=== PATIENT | female | born 1985 | race Hispanic/Latino ===

== ENCOUNTER 2017-08-28 15:26 | Inpatient (IN) | payer MEDICAID ==
[2017-08-28 15:38] VITALS: BMI 29.2
--- NOTE | 2017-08-28 16:15 | C.PDOC ---
History Of Present Illness 32-YEAR-OLD FEMALE, PRESENTS TO THE EMERGENCY DEPARTMENT, PRESCREEND FOR HEROIN DETOX. LAST USE THIS MORNING. +PCP CIGARETTE LAST NIGHT. CURRENTLY ASYMPT EXAM NAD PSYCH CALM COOPERATIVE NO ACUTE INTOX REMAINDER NEG Time Seen by Provider: 08/28/17 15:42 Chief Complaint (Nursing): Substance Abuse History Per: Patient History/Exam Limitations: no limitations Past Medical History Reviewed: Historical Data, Nursing Documentation, Vital Signs Vital Signs: Last Vital Signs Temp 97.7 F 08/30/17 05:52 Pulse 87 08/30/17 05:52 Resp 18 08/30/17 05:52 BP 104/64 08/30/17 05:52 Pulse Ox 98 08/30/17 05:52 - Medical History PMH: Asthma Family History: States: No Known Family Hx - Social History Hx Alcohol Use: Yes Hx Substance Use: Yes - Immunization History Hx Tetanus Toxoid Vaccination: Yes ("less than 7 yrs ago") Hx Influenza Vaccination: No Hx Pneumococcal Vaccination: No Review Of Systems Constitutional: Negative for: Fever Cardiovascular: Negative for: Chest Pain Respiratory: Negative for: Shortness of Breath Psych: Negative for: Suicidal ideation Physical Exam - Physical Exam Appears: Non-toxic, No Acute Distress, Other (CALM COOPERATIVE NO ACUTE INTOX) Skin: Warm, Dry, No Rash Head: Atraumatic Eye(s): bilateral: Normal Inspection Nose: Normal Lips: Normal Appearing Neck: Normal ROM Cardiovascular: Rhythm Regular, No Murmur Respiratory: Normal Breath Sounds, No Accessory Muscle Use Extremity: Normal ROM Neurological/Psych: Oriented x3 ED Course And Treatment - Laboratory Results Result Diagrams: 08/28/17 16:27 08/28/17 16:27 O2 Sat by Pulse Oximetry: 96 Progress - Data Reviewed Data Reviewed: Lab, Old records Disposition Counseled Patient/Family Regarding: Studies Performed, Diagnosis - Disposition Disposition: HOSPITALIZED Disposition Time: 16:55 Condition: STABLE - POA Present On Arrival: None - Clinical Impression Clinical Impression: Drug dependence - Scribe Statement The provider has reviewed the documentation as recorded by the Scribe (Jarrell Brink) All medical record entries made by the Scribe were at my direction and personally dictated by me. I have reviewed the chart and agree that the record accurately reflects my personal performance of the history, physical exam, medical decision making, and the department course for this patient. I have also personally directed, reviewed, and agree with the discharge instructions and disposition. Decision To Admit - Pt Status Changed To: Hospital Disposition Of: Inpatient - Admit Certification Admit to Inpatient:: After my assessment, the patient will require hospitalization for at least two midnights. This is because of the severity of symptoms shown, intensity of services needed, and/or the medical risk in this patient being treated as an outpatient. - InPatient: Physician Admission Certification: I certify that this patient requires 2 or more midnights of care for the following reason:: SEE NOTE - . Bed Request Type: Detox Admitting Physician: Yasmani Lee Patient Diagnosis: Drug dependence
[2017-08-28 16:34] LABS: BASO % 0.5 % (0.0-2.0); EOS # 0.3 K/uL (0.0-0.7); EOS % 5.2 % (0.0-4.0); HEMATOCRIT 37.1 % (34.0-47.0); LYMPH # 2.6 K/uL (1.0-4.3); LYMPH % 40.4 % (20.0-40.0); MEAN CELL VOLUME 89.7 fL (81.0-99.0); MEAN CORPUSCULAR HEMOGLOBIN 29.4 pg (27.0-31.0); MEAN CORPUSCULAR HGB CONC 32.8 g/dL (33.0-37.0); MEAN PLATELET VOLUME 7.1 fL (7.2-11.7); MONO # 0.6 K/uL (0.0-0.8); MONO % 9.1 % (0.0-10.0); RED CELL DISTRIBUTION WIDTH 14.2 % (11.5-14.5); WHITE BLOOD COUNT 6.4 K/uL (4.8-10.8)
[2017-08-28 16:43] LABS: RBC URINE 137 /hpf (0-3); TRANSITIONAL EPITHIAL 1 /hpf (0-3); URINE BACTERIA MANY (<OCC); URINE BILIRUBIN NEGATIVE (NEGATIVE); URINE COLOR Amber (YELLOW); URINE GLUCOSE (UA) NORMAL (Normal); URINE KETONE NEGATIVE (NEGATIVE); URINE LEUKOCYTE ESTERASE 3+ Leu/uL (Negative); URINE PROTEIN 1+ mg/dL (NEGATIVE); WBC URINE 74 /hpf (0-5)
[2017-08-28 16:44] LABS: URINE BLOOD 3+ (NEGATIVE)
[2017-08-28 16:45] LABS: CHLORIDE 97 mmol/L (98-107); POTASSIUM 3.7 mmol/L (3.6-5.2); SODIUM 137 mmol/L (132-148)
[2017-08-28 16:47] LABS: BILIRUBIN,TOTAL 0.7 mg/dL (0.2-1.3); GFR AFRICAN-AMERICAN > 60
[2017-08-28 16:48] LABS: ALKALINE PHOSPHATASE 106 U/L (38-126); ALT/SGPT 39 U/L (9-52); AST/SGOT 28 U/L (14-36); BLOOD UREA NITROGEN 7 mg/dL (7-17); CALCIUM 8.9 mg/dl (8.6-10.4); CARBON DIOXIDE 28 mmol/L (22-30); GLUCOSE,RANDOM 80 mg/dL (65-105); TOTAL PROTEIN 8.4 g/dL (6.3-8.3)
[2017-08-28 16:49] LABS: ALCOHOL SERUM < 10 mg/dl (0-10)
--- NOTE | 2017-08-28 17:25 | PCM.BM ---
<Ara Villar - Last Filed: 08/28/17 17:24> Treatment Plan Problems - Problems identified on initial assessmt potiential for opiate withdrawal Date Initiated: 08/28/17 Time Initiated: 17:24 Assessment reference: NA Status: Active Treatment assets and liabiliti Patient Assests: ADL independent, physically healthy Patient Liabilities: substance abuse - Milieu Protocol Maintain good personal hygiene: daily Encourage regular showers, daily Remind patient to perform daily oral care, daily Assist patient to perform ADL's Maintain personal safety: every shift Educate patient to report safety concerns to staff, every shift Monitor environment for contraband/sharps Medication safety: Monitor for expected outcome, potential side effects: every shift, Assess barriers to learning: every shift, Assess readiness for medication education: every shift <[place] - Last Filed: 08/31/17 14:44> Family Contact Family involvement: Family/SO is involved Family contact: Patient agrees to contact, Telephone contact initiated by staff - Goals for Treatment Patient goals for treatment: COmplete detox and apply for an IOP program. Discharge/Continuing Care - Education Needs Education Needs: Patient Medication, Patient Diagnosis/Disease Process, Patient Coping Skills, Patient Anger Management skills, Patient Placement options, Patient Community resources - Discharge Discharge Criteria: No longer exhibiting s/s of withdrawal, Reduction of target symptoms Discharge to:: With Family - Treatment Team Participation Patient/Family/SO Statement: 08/31/17 14:45 "I wanna go to IOP like my dyfs worker recommended". Discussed with Family/SO: No Was Patient/Family/SO present at Treatment Team Meeting: Yes <Diony Hidalgo - Last Filed: 09/03/17 00:29> - Diagnosis (1) Opioid use disorder, severe, dependence Status: Acute Interventions: 09/03/17 00:29 * Assess 7x/week regarding severity of withdrawal * Educate regarding risks, benefits, side effects and alternatives of medications * Use Motivational Interviewing for abstinence * Use CBT for relapse prevention * Medication management for withdrawal symptoms * Encourage medication assisted treatment *
[2017-08-28] MEDS ORDERED: Albuterol HFA 90 mcg/actuation (8 g) INH PRN (18:58)
[2017-08-29] MEDS ORDERED: Aluminum Hydroxide/Magnesium Hydroxide Susp (30 mL) PO PRN
[2017-08-29] MEDS ORDERED: Buprenorphine Hydrochloride 2 mg SL ONE (10:59)
--- NOTE | 2017-08-29 10:59 | PCM.PSYCH ---
Initial Psychiatric Evaluation - Initial Psychiatric Evaluation Type of Admission: Voluntary Legal Status: Capacity Chief Complaint (in patient's own words): I need help.' History of Present Illness and Precipitating Events: Patient is a 32 years old CF, who came to the to get help in opioid detox. Patient reports that that she lives with her BF and she just delivered a baby 3 wees ago. As per the pat she relapsed on heroin soon after the delivery and started abusing increasing amounts of heroin. Yesterday she abused 5 bags and started developing withdrawal symptoms so she came to the hospital to get help. Pt reports that she remained sober for 3 years and relapsed in 2016. She also reports involvement of dyfus. Patient reports withdrawal symptoms including, sweating, anxiety, back and joint pains, nausea and abdominal cramps. Patient reports poor sleep but denies any manic symptoms. She denies any auditory or visual hallucinations or any psychotic symptoms. She denies any SI/HI. Past medical history Asthma Current Medications: Active Medications Generic Name Dose Route Start Last Admin Trade Name Blayneq PRN Reason Stop Dose Admin Acetaminophen 650 mg 08/29/17 00:00 08/29/17 09:58 Tylenol 325mg Tab PO 650 mg Q4H PRN Administration Fever greater than 101 F Al Hydrox/Mg Hydrox/Simethicone 30 ml 08/29/17 00:00 Maalox 30 Ml PO TID PRN Indigestion / Heartburn Albuterol 1 puff 08/28/17 18:58 Ventolin Hfa 90 Mcg/Actuation (8 G) INH RQ4 PRN dyspnea Clonidine HCl 0.1 mg 08/29/17 00:00 Catapres PO Q8 PRN COWS Score More or Equal to 5 Loperamide HCl 2 mg 08/29/17 00:00 Imodium PO Q8 PRN Diarrhea Nicotine 1 patch 08/29/17 10:00 08/29/17 10:03 Nicoderm Cq TD Not Given DAILY SAMMY Ondansetron HCl 4 mg 08/29/17 00:00 Zofran Tab PO Q8 PRN Nausea/Vomiting Quetiapine Fumarate 50 mg 08/28/17 22:00 08/28/17 22:26 Seroquel PO Not Given HS SAMMY Trazodone HCl 50 mg 08/28/17 18:43 Desyrel PO HS PRN insomnia Past Psychiatric History - Past Psychiatric History Previous Treatment History: Inpatient Pertinent Medical Hx (Current Medical&Sleep Prob, Allergies): Allergies Allergy/AdvReac Type Severity Reaction Status Date / Time shellfish Allergy Uncoded 08/28/17 15:38 No Known Home Med 08/28/17 Review of Systems - Review of Systems All systems: reviewed and no additional remarkable complaints except - Psychiatric Psychiatric: Anxiety, Irritability. absent: Suicidal Ideation Mental Status Examination - Personal Presentation Personal Presentation: Looks stated age - Affect Affect: Constricted - Motor Activity Motor Activity: Calm - Reliability in Providing Information Reliability in Providing Information: Good - Speech Speech: Organized - Mood Mood: Anxious - Formal Thought Process Formal Thought Process: No Impairment - Obsessions/Compulsions Obsessions: No Compulsions: No - Cognitive Functions Orientation: Person, Place, Situation, Time Sensorium: Alert Attention/Concentration: Attentive Abstract Thinking: [place] Estimate of Intelligence: Below average Judgement: Imparied, as evidence by: Poor judgement, Intact, as evidence by: Insight regarding need for hospitalization - Risk Risk: Withdrawal, Diminished functioning DSM 5 DX - DSM 5 DSM 5 Diagnosis: Opioid use disorder severe Opioid withdrawal - Recommended/Plan of Treatment Treatment Recommendations and Plan of Treatment: Opioid use disorder severe CBT Psychoeducation Supportive therapy, individual therapy Use OR for abstinence Opioid withdrawal CBT Psychoeducation Supportive therapy, individual therapy Clonidine when necessary Subutax taper - Smoking Cessation Smoking Cessation Initiated: No
[2017-08-29] MEDS: Buprenorphine Hydrochloride 2 mg SL SCH ×3 (12:47→13:19)
[2017-08-29] MEDS ORDERED: Vitamins A & D Oint UD Foilpak TOP PRN (14:59)
[2017-08-30] MEDS: Buprenorphine Hydrochloride 2 mg SL SCH (09:13)
[2017-08-30] MEDS ORDERED: Buprenorphine Hydrochloride 2 mg SL SCH (10:59)
--- NOTE | 2017-08-30 14:54 | PCM.PYCHPN ---
Psychiatric Progress Note - Psychiatric Progress Note Patient seen today, length of contact: 16 mins Patient Chief Complaint: "I am better" Problems Identified/Issues Discussed: The pt is seen, chart reviewed, case discussed with staff. Support given, CBT, and DC used briefly Improving slowly and needs more time. No SEs from medications, risks discussed. After care discussed Medication Change: Yes (detox changes daily ) Medical Record Reviewed: Yes Mental Status Examination - Cognitive Function Orientation: Person, Place, Situation, Time Memory: Intact Attention: WNL Concentration: WNL Association: WNL Fund of Knowledge: WNL - Mood Mood: Anxious - Affect Affect: Blunted - Formal Thought Process Formal Thought Process: No Impairment - Suicidal Ideation Suicidal Ideation: No - Homicidal Ideation Homicidal Ideation: No Goal/Treatment Plan - Goal/Treatment Plan Need for Continued Stay: Remain at risks for inpatient hospitalization, Discharge may exacerbated symptoms Progress Toward Problem(s) and Goals/Treatment Plan: continue medications support and psychoeducation daily attend groups and activities daily after care planning by Tl
[2017-08-31] MEDS: Buprenorphine Hydrochloride 2 mg SL SCH (09:10)
--- NOTE | 2017-08-31 11:17 | PCM.PYCHPN ---
Psychiatric Progress Note - Psychiatric Progress Note Patient seen today, length of contact: 16 mins Patient Chief Complaint: "I feel good" Problems Identified/Issues Discussed: Patient is less anxious . The pt is seen, chart reviewed, case discussed with staff. Support given, CBT, and [place] used briefly Improving slowly and needs more time. No SEs from medications, risks discussed. After care discussed Medication Change: Yes (detox changes daily ) Medical Record Reviewed: Yes Mental Status Examination - Cognitive Function Orientation: Person, Place, Situation, Time Memory: Intact Attention: WNL Concentration: WNL Association: WNL Fund of Knowledge: WNL - Mood Mood: Anxious (less) - Affect Affect: Blunted - Formal Thought Process Formal Thought Process: No Impairment - Suicidal Ideation Suicidal Ideation: No - Homicidal Ideation Homicidal Ideation: No Goal/Treatment Plan - Goal/Treatment Plan Need for Continued Stay: Remain at risks for inpatient hospitalization, Discharge may exacerbated symptoms Progress Toward Problem(s) and Goals/Treatment Plan: continue medications support and psychoeducation daily attend groups and activities daily after care planning by Tl
[2017-08-31] MEDS: Tramadol 25 mg PO PRN ×2 (15:49→22:04)
[2017-09-01] MEDS: Buprenorphine Hydrochloride 2 mg SL SCH (09:23)
--- NOTE | 2017-09-01 14:32 | PCM.PYCHPN ---
Psychiatric Progress Note - Psychiatric Progress Note Patient seen today, length of contact: 16 mins Patient Chief Complaint: "I feel good" Problems Identified/Issues Discussed: Patient is less anxious . The pt is seen, chart reviewed, case discussed with staff. Support given, CBT, and [place] used briefly Improving slowly and needs more time. No SEs from medications, risks discussed. After care discussed Medication Change: Yes (detox changes daily ) Medical Record Reviewed: Yes Mental Status Examination - Cognitive Function Orientation: Person, Place, Situation, Time Memory: Intact Attention: WNL Concentration: WNL Association: WNL Fund of Knowledge: WNL - Mood Mood: Anxious (much less) - Affect Affect: Blunted - Formal Thought Process Formal Thought Process: No Impairment - Suicidal Ideation Suicidal Ideation: No - Homicidal Ideation Homicidal Ideation: No Goal/Treatment Plan - Goal/Treatment Plan Progress Toward Problem(s) and Goals/Treatment Plan: continue medications support and psychoeducation daily attend groups and activities daily after care planning by Sw - trying for IOP
[2017-09-01] MEDS: Tramadol 25 mg PO PRN (17:08)
[2017-09-02] MEDS: Buprenorphine Hydrochloride 2 mg SL SCH (09:36)
--- NOTE | 2017-09-02 12:01 | PCM.PYCHPN ---
Psychiatric Progress Note - Psychiatric Progress Note Patient seen today, length of contact: 16 mins Patient Chief Complaint: "OK today" Problems Identified/Issues Discussed: The pt is seen, chart reviewed, case discussed with staff. The pt is compliant with medications and reports no side-effects. Symptoms are improving but needs more time to stabilize. After care discussed, she will go to an IOP She also had the phone session with the drug court and it went "great" support and psychoeducation given. Medication Change: Yes (detox changes daily ) Medical Record Reviewed: Yes Mental Status Examination - Cognitive Function Orientation: Person, Place, Situation, Time Memory: Intact Attention: WNL Concentration: WNL Association: WNL Fund of Knowledge: WNL - Mood Mood: Anxious (much less) - Affect Affect: Blunted - Formal Thought Process Formal Thought Process: No Impairment - Suicidal Ideation Suicidal Ideation: No - Homicidal Ideation Homicidal Ideation: No Goal/Treatment Plan - Goal/Treatment Plan Need for Continued Stay: Discharge may exacerbated symptoms, Severe functional impairment Progress Toward Problem(s) and Goals/Treatment Plan: continue medications support and psychoeducation daily attend groups and activities daily after care planning by Tl lyman for [facility] Estimated Date of D/C: 09/03/17
[2017-09-02 17:00] VITALS: RESP 18
[2017-09-03 06:40] VITALS: O2SAT 98
--- NOTE | 2017-09-03 08:45 | PCM.PYCHDC ---
Mental Status Examination - Mental Status Examination Orientation: Person, Place, Situation, Time Memory: Intact Mood: Anxious Affect: Constricted Speech: Appropriate Attention: WNL Concentration: WNL Association: WNL Fund of Knowledge: WNL Formal Thought Process: No Impairment Suicidal Ideation: No Current Homicidal Ideation?: No Discharge Summary - Discharge Note Reason for Hospitalization: Opioid detox Consultations:: List each consultation separately and include: 1. Reason for request. 2. Findings. 3. Follow-up Summary of Hospital Course include:: 1. Description of specific treatment plan utilized for patients during their course of treatmen. 2. Summarize the time- course for resolution of acute symptoms and/or regressed behaviors. 3. Describe issues identified and worked on during hospitalization. 4. Describe medication utilized. 5. Describe medical problems identified and treated. 6. Reassessment of suicide risk Summary of Hospital Course: The pt was admitted and started on treatment with psychotherapy, support, psychoeducation and medications. [place] and CBT used. The pt attended groups and activities, as well as milieu therapy. All the risks and benefits of medications are discussed and the patient understood and agreed. The pt improved with the treatments provided. After care discussed with the patient. GENIEFRED wanted her to go to 30-day rehab but she couldn;t get in. Court contacted her while she was here and they were OK with her going to an IOP while waiting She is also interested in Vivitrol shot. - Final Diagnosis (DSM 5) Condition upon Discharge: STABLE Disposition: HOME/ ROUTINE Follow-up Treatment Plan: Continue below medications after discharge. Follow after care plan as discussed. Use relapse prevention skills Return to ER or call 911 if suicidal, homicidal or symptoms relapse. Stay away from stress, alcohol and drugs. See primary doctor regularly and get labs. Prescriptions/Medication Reconciliation: Albuterol HFA [Ventolin HFA 90 mcg/actuation (8 g)] 1 puff INH RQ4 PRN #1 inhaler PRN Reason: dyspnea Cephalexin [Keflex] 500 mg PO BID #6 cap Escitalopram [Lexapro] 20 mg PO DAILY #30 tab Gabapentin [Neurontin] 100 mg PO TID #90 cap QUEtiapine [SEROquel] 50 mg PO HS #30 tab - Smoking Cessation Smoking Cessation Medication prescribed: No - Antipsychotic Medications Pt discharged on 2 or more routine antipsychotic medications: No
[2017-09-03 09:43] VITALS: BP 110/64; PULSE 98; TEMP 98
== END 2017-09-03 10:30 | disposition home or self-care (01) | DRG 745 ==
LOC: C.ER 15:26 → C.7D 16:55
PROVIDERS: ADMIT Psychiatry & Neurology Psychiatry; ATTEND Psychiatry & Neurology Psychiatry
PROC: HZ52ZZZ Individual Psychotherapy for Substance Abuse Treatment, Cognitive-Behavioral (ICD-10-PCS; principal; 2017-08-28)
PROC: HZ57ZZZ Individual Psychotherapy for Substance Abuse Treatment, Motivational Enhancement (ICD-10-PCS; 2017-08-28)
PROC: HZ56ZZZ Individual Psychotherapy for Substance Abuse Treatment, Psychoeducation (ICD-10-PCS; 2017-08-28)
PROC: HZ59ZZZ Individual Psychotherapy for Substance Abuse Treatment, Supportive (ICD-10-PCS; 2017-08-28)
PROC: HZ2ZZZZ Detoxification Services for Substance Abuse Treatment (ICD-10-PCS; 2017-08-28)
DX: F11.23 Opioid dependence with withdrawal (principal); F41.9 Anxiety disorder, unspecified; M25.50 Pain in unspecified joint; J45.909 Unspecified asthma, uncomplicated